=== PATIENT | male | born 1980 | race Hispanic/Latino ===

== ENCOUNTER 2023-06-29 13:42 | Emergency (ER) | payer SELFPAY ==
[2023-06-29] MEDS ORDERED: Lidocaine 1% PF 5 ML VIAL ONE (16:00)
[2023-06-29] MEDS ORDERED: Boostrix 0.5 ML (Tdap) VIAL (>/=7 yrs of age) ONE (16:11)
[2023-06-29] MEDS ORDERED: Ketorolac Tromethamine 30 MG (1 mL) VIAL ONE (17:28)
== END 2023-06-29 17:35 | disposition home or self-care (01) ==
LOC: ERS 13:42
DX: S61.212A Laceration without foreign body of right middle finger without damage to nail, initial encounter (principal); Z23 Encounter for immunization; W23.1XXA Caught, crushed, jammed, or pinched between stationary objects, initial encounter; Y99.0 Civilian activity done for income or pay
CPT/HCPCS: 12004; 90471; 90715; 96372; J1885